=== PATIENT | female | born 1965 | race Caucasian/White ===

== ENCOUNTER 2020-12-02 17:00 | Outpatient (CLI) | payer OTHER | END 2020-12-02 17:01 | disposition home or self-care (01) | LOC: SLEEPLAB 17:00 | PROVIDERS: ATTEND Registered Nurse | DX: G47.33 Obstructive sleep apnea (adult) (pediatric) (principal); R53.83 Other fatigue; R06.83 Snoring; R09.89 Other specified symptoms and signs involving the circulatory and respiratory systems; F32.9 Major depressive disorder, single episode, unspecified; I10 Essential (primary) hypertension; G47.00 Insomnia, unspecified; E66.9 Obesity, unspecified; Z68.42 Body mass index [BMI] 45.0-49.9, adult | CPT/HCPCS: 95806 ==

== ENCOUNTER 2021-01-15 19:00 | Outpatient (CLI) | payer OTHER | END 2021-01-15 19:01 | disposition home or self-care (01) | LOC: SLEEPLAB 19:00 | PROVIDERS: ATTEND Registered Nurse | DX: G47.33 Obstructive sleep apnea (adult) (pediatric) (principal); R06.83 Snoring; F32.A Depression, unspecified; I10 Essential (primary) hypertension; E66.9 Obesity, unspecified; R09.89 Other specified symptoms and signs involving the circulatory and respiratory systems; R53.83 Other fatigue; Z68.42 Body mass index [BMI] 45.0-49.9, adult | CPT/HCPCS: 95811 ==

== ENCOUNTER 2021-09-07 13:55 | Outpatient (CLI) | payer OTHER | END 2021-09-07 13:56 | disposition home or self-care (01) | LOC: BICRAD 13:55 | PROVIDERS: ATTEND Registered Nurse | DX: M54.6 Pain in thoracic spine (principal); M54.50 Low back pain, unspecified; M47.816 Spondylosis without myelopathy or radiculopathy, lumbar region | CPT/HCPCS: 72072; 72100 ==

== ENCOUNTER 2022-08-16 10:58 | Outpatient (CLI) | payer OTHER | END 2022-08-16 10:59 | disposition home or self-care (01) | LOC: BICCT 10:58 | PROVIDERS: ATTEND Urology | DX: C64.1 Malignant neoplasm of right kidney, except renal pelvis (principal); N28.89 Other specified disorders of kidney and ureter; J98.4 Other disorders of lung | CPT/HCPCS: 74177; 82565 ==

== ENCOUNTER 2023-09-26 13:22 | Outpatient (CLI) | payer OTHER ==
[~2023-09-26 13:22] MED LIST: Iopamidol 370 76% 100 ML VIAL ONE
== END 2023-09-26 13:23 | disposition home or self-care (01) ==
LOC: BICCT 13:22 → CT 13:23
PROVIDERS: ATTEND Internal Medicine
DX: C20 Malignant neoplasm of rectum (principal); C64.1 Malignant neoplasm of right kidney, except renal pelvis; N28.89 Other specified disorders of kidney and ureter; K76.89 Other specified diseases of liver
CPT/HCPCS: 71260; 74177; Q9967

== ENCOUNTER 2025-01-06 11:35 | Day surgery (SDC) | payer OTHER ==
[2025-01-03 10:03] VITALS: BMI 38.0
[2025-01-06] MEDS ORDERED: Bupivacaine 0.25% HCL 30 ML VIAL ONE (11:54)
[2025-01-06] MEDS ORDERED: Lidocaine 1% PF 5 ML VIAL ONE (11:57)
[2025-01-06] MEDS ORDERED: Ondansetron PF 4 MG/2 ML Vial ONE (11:57)
[2025-01-06] MEDS ORDERED: fentaNYL PF 100 MCG/2 ML SYRINGE ONE (12:11)
[2025-01-06] MEDS ORDERED: CEFAZOLIN 2 GM VIAL ONE (12:16)
[2025-01-06] MEDS ORDERED: Famotidine/PF 20 mg/2ml Vial ONE (13:07)
[2025-01-06] MEDS ORDERED: Glycopyrrolate 0.2 MG/ML 5 ML SYRINGE ONE (13:38)
[2025-01-06] MEDS ORDERED: PROPOFOL 200 MG/20 ML VIAL ONE (13:41)
[2025-01-06] MEDS ORDERED: PHENYLEPHRINE-NS 100 MCG/ML 10 ML SYRINGE ONE (13:55)
== END 2025-01-06 15:31 | disposition home or self-care (01) ==
LOC: SDC 11:35
PROVIDERS: ATTEND Surgery
PROC: 0JH60WZ Insertion of Totally Implantable Vascular Access Device into Chest Subcutaneous Tissue and Fascia, Open Approach (ICD-10-PCS; principal; 2025-01-06)
DX: T82.514A Breakdown (mechanical) of infusion catheter, initial encounter (principal); C20 Malignant neoplasm of rectum; C78.7 Secondary malignant neoplasm of liver and intrahepatic bile duct
CPT/HCPCS: 71045; C1788; J0169; J0665; J1100; J1308; J1642; J2250; J2405; J2704

== ENCOUNTER 2025-02-03 05:56 | Day surgery (SDC) | payer OTHER ==
[2025-01-31 11:11] VITALS: BMI 38.0
[2025-02-03] MEDS ORDERED: Acetaminophen 325 MG TAB ONE (06:24)
[2025-02-03] MEDS ORDERED: metroNIDAZOLE 500 MG (100 mL) BAG ONE ×2 (06:25→06:41)
[2025-02-03] MEDS ORDERED: Bupivacaine 0.25% HCL 30 ML VIAL ONE (07:08)
[2025-02-03] MEDS ORDERED: Famotidine/PF 20 mg/2ml Vial ONE (07:16)
[2025-02-03] MEDS ORDERED: fentaNYL PF 100 MCG/2 ML SYRINGE ONE ×2 (07:22→08:38)
[2025-02-03] MEDS ORDERED: PROPOFOL 200 MG/20 ML VIAL ONE (07:44)
[2025-02-03] MEDS ORDERED: PHENYLEPHRINE-NS 100 MCG/ML 10 ML SYRINGE ONE (07:44)
[2025-02-03] MEDS ORDERED: Ketorolac Tromethamine 30 MG (1 mL) VIAL ONE (07:44)
[2025-02-03] MEDS ORDERED: Ondansetron PF 4 MG/2 ML Vial ONE (07:50)
[2025-02-03] MEDS ORDERED: Lidocaine 1% PF 5 ML VIAL ONE (07:50)
[2025-02-03] MEDS ORDERED: Glycopyrrolate 0.2 MG/ML 5 ML SYRINGE ONE (07:50)
[2025-02-03] MEDS ORDERED: HYDROcodone/Acetaminophen 5/325 mg Tablet ONE (10:01)
== END 2025-02-03 11:10 | disposition home or self-care (01) ==
LOC: SDC 05:56
PROVIDERS: ATTEND Surgery
PROC: 0DBP7ZZ Excision of Rectum, Via Natural or Artificial Opening (ICD-10-PCS; principal; 2025-02-03)
DX: K60.42 Rectal fistula, complex (principal); N73.9 Female pelvic inflammatory disease, unspecified; Z85.048 Personal history of other malignant neoplasm of rectum, rectosigmoid junction, and anus
CPT/HCPCS: 87070; 87076; 87077; 87186; 87205; 88304; J0169; J0665; J1100; J1308; J1885; J2405; J2704; J3010